=== PATIENT | female | born 1985 | race Hispanic/Latino ===

== ENCOUNTER 2019-04-19 22:44 | Emergency (ER) | payer OTHER ==
[2019-04-19] MEDS ORDERED: ONDANSETRON HCL 4 MG/2 ML VIAL ONE (23:36)
[2019-04-19] MEDS ORDERED: SODIUM CHLORIDE 0.9% 1000ML 1,000 ML IV ONE (23:47)
[2019-04-19] MEDS ORDERED: METOCLOPRAMIDE 10 MG/2 ML VIAL ONE (23:47)
[2019-04-20] MEDS ORDERED: LIDOCAINE 5% TOPICAL PATCH TP ONE (00:04)
[2019-04-20] MEDS ORDERED: DEXTROSE 5 %-0.45 % NACL 1,000 ML IV ONE (00:04)
[2019-04-20] MEDS ORDERED: ACETAMINOPHEN EXTRA STRENGTH 500 MG TABLET ONE (01:09)
== END 2019-04-20 02:04 | disposition home or self-care (01) ==
LOC: EDH 22:44
DX: O26.891 Other specified pregnancy related conditions, first trimester (principal); R51 Headache; M62.838 Other muscle spasm; R11.0 Nausea; Z87.891 Personal history of nicotine dependence; Z3A.12 12 weeks gestation of pregnancy
CPT/HCPCS: 96374; 96375; 99284; J2405; J2765; J7030; J7042